=== PATIENT | female | born 1965 | race Caucasian/White ===

== ENCOUNTER 2016-09-02 18:49 | Emergency (ER) | payer OTHER ==
[2016-09-02 18:49] VITALS: BMI 21.4
[2016-09-02 19:05] VITALS: RESP 18; TEMP 97.5; O2SAT 100
--- NOTE | 2016-09-02 19:36 | C.PDOC ---
History Of Present Illness 50 y/o female presents to the ED with complains of right foot pain. Pt states she was walking and missed 2 steps twisting her foot. Pt denies weakness, numbness or any other injury. Time Seen by Provider: 09/02/16 19:12 Chief Complaint (Nursing): Lower Extremity Problem/Injury History Per: Patient History/Exam Limitations: no limitations Onset/Duration Of Symptoms: Hrs Current Symptoms Are (Timing): Still Present Severity: Mild Recent travel outside of the [place]: No - Ankle/Foot Description Of Injury: Twisted Past Medical History Reviewed: Historical Data, Nursing Documentation, Vital Signs Vital Signs: Last Vital Signs Temp 97.5 F L 09/02/16 18:58 Pulse 68 09/02/16 20:35 Resp 18 09/02/16 20:35 BP 112/73 09/02/16 20:35 Pulse Ox 100 09/02/16 20:35 - Medical History PMH: Asthma, HTN Surgical History: Tonsillectomy - [facility] Procedures CLOSED ENDOSCOPIC BIOPSY OF LARGE INTESTINE (04/11/13) Family History: States: Unknown Family Hx - Social History Hx Alcohol Use: No Hx Substance Use: No - Immunization History Hx Tetanus Toxoid Vaccination: Yes Hx Influenza Vaccination: Yes Hx Pneumococcal Vaccination: Yes Review Of Systems Except As Marked, All Systems Reviewed And Found Negative. Musculoskeletal: Positive for: Foot Pain (right foot pain) Neurological: Negative for: Weakness, Numbness Physical Exam - Physical Exam Appears: Non-toxic, No Acute Distress Skin: Warm, Dry, No Rash Head: Atraumatic, Normacephalic Extremity: Normal ROM, Tenderness (over right lateral 4th and 5th metatarsals), No Deformity (no obvious), Swelling (over right lateral 4th and 5th metatarsals) Neurological/Psych: Oriented x3, Normal Motor, Normal Sensation ED Course And Treatment O2 Sat by Pulse Oximetry: 100 (on room air) Pulse Ox Interpretation: Normal - Other Rad foot xray X-Ray: Interpreted by Me Interpretation: No fx, no dislocation ankle xray X-Ray: Interpreted by Me Interpretation: No fx, no dislocation Progress Note: Geoffrey wrapped by RN, crutches were given with the instructions. Patient was d/c home with Ortho follow up. Medical Decision Making Medical Decision Making: Plan: tylenol, XR right foot and ankle Disposition - Disposition Referrals: Linden Aguila III, MD [Staff Provider] - Disposition: HOME/ ROUTINE Disposition Time: 20:19 Condition: STABLE Additional Instructions: Follow up with PMD and Orthopedist within 1-2 days. Return to ED if feel worse. Prescriptions: Ibuprofen [Motrin Tab] 600 mg PO Q8 #30 tab Instructions: Foot Sprain (ED) - Clinical Impression Clinical Impression: Foot sprain - PA / CNC PROGRAMMER / Resident Statement MD/DO has reviewed & agrees with the documentation as recorded. - Scribe Statement The provider has reviewed the documentation as recorded by the Scribjulius Franco All medical record entries made by the Francesca were at my direction and personally dictated by me. I have reviewed the chart and agree that the record accurately reflects my personal performance of the history, physical exam, medical decision making, and the department course for this patient. I have also personally directed, reviewed, and agree with the discharge instructions and disposition.
[2016-09-02 20:37] VITALS: BP 112/73; PULSE 68
--- NOTE | 2016-09-02 22:30 | RAD ---
PROCEDURE: Right Ankle Radiographs. HISTORY: r/o fracture COMPARISON: Concurrent radiographs right foot FINDINGS: BONES: No evidence of acute displaced fracture nor dislocation. JOINTS: Normal. No dislocation. SOFT TISSUES: No significant soft tissue swelling OTHER FINDINGS: None. IMPRESSION: No evidence of acute displaced fracture nor dislocation.
--- NOTE | 2016-09-02 22:34 | RAD ---
PROCEDURE: Right Foot Radiographs. HISTORY: r/o fracture COMPARISON: None. FINDINGS: BONES: Normal. No fracture. JOINTS: Normal. SOFT TISSUES: Normal. OTHER FINDINGS: None. IMPRESSION: Normal right foot radiographs. If symptoms persist or occult fracture suspected clinically recommend followup CT scan or MRI
== END 2016-09-02 20:37 | disposition home or self-care (01) ==
LOC: C.ER 18:49
DX: S93.601A Unspecified sprain of right foot, initial encounter (principal); X50.1XXA Overexertion from prolonged static or awkward postures, initial encounter; Y93.89 Activity, other specified; Y92.9 Unspecified place or not applicable